=== PATIENT | male | born 1980 | race Hispanic/Latino ===

== ENCOUNTER 2018-05-28 08:29 | Emergency (ER) | payer SELFPAY ==
[2018-05-28 08:30] VITALS: BP 142/84; PULSE 73; RESP 23; TEMP 36.9; O2SAT 100; BMI 35.9
[2018-05-28 09:10] VITALS: BP 125/74; PULSE 69; RESP 23; O2SAT 96
--- NOTE | 2018-05-28 09:11 | DI.RAD.S_ITS ---
PROCEDURE: XR CHEST 1V INDICATIONS: chest pain TECHNIQUE: One view of the chest was acquired. COMPARISON: [facility], CR, XR CHEST 1V, 10/31/2017, 19:23. FINDINGS: Surgical changes and devices: None. Lungs and pleura: No pleural effusions or pneumothorax. Lungs are clear. Mediastinum: Mediastinal contours appear normal. Heart size is normal. Bones and chest wall: No suspicious bony lesions. Overlying soft tissues appear unremarkable. IMPRESSION: Mildly reduced inspiratory volume. No acute disease. Dictated by: Roque Sood M.D. on 05/28/2018 at 9:46 Approved by: Roque Sood M.D. on 05/28/2018 at 9:46
[2018-05-28 09:29] LABS: INR 1.1 (0.9-1.3); Prothrombin Time 11.3 SECONDS (10.1-12.7)
[2018-05-28 09:32] LABS: Add Manual Diff / Slide Review NO; Basophils Percent Auto 0.2 % (0-2); Eosinophils Percent Auto 1.9 % (2-4); Hematocrit 38.4 % (41-53); Hemoglobin 13.4 g/dL (13.5-17.5); Lymphocytes Percent Auto 23.6 % (25-40); Mean Corpuscular Hemoglobin 29.9 PG (26-34); Mean Corpuscular Volume 85.3 fL (80-100); Monocytes Percent Auto 7.8 % (3-14); Neutrophils Absolute Auto 5400 /uL (3000-5900); Neutrophils Percent Auto 66.5 % (50-75); PTT Partial Thromboplastin Tim 36 SECONDS (26.4-36.2); Platelet Count 252 X10^3/uL (150-400); Red Cell Distribution Width 13.2 % (11.6-14.8); White Blood Cell Count 8.2 X10^3/uL (4.5-11.0)
[2018-05-28 09:33] LABS: Alanine Aminotransferase 34 IU/L (21-72); Albumin Globulin Ratio 1.5 (1.0-2.8); Alkaline Phosphatase 110 U/L (38-126); Aspartate Aminotransferase 21 IU/L (17-59); BUN Creatinine Ratio 18.8 (6-22); Bilirubin Total 0.2 mg/dL (0.2-1.3); Blood Urea Nitrogen 15 mg/dL (9-20); Calcium 8.7 mg/dL (8.4-10.2); Carbon Dioxide 26 mmol/L (22-32); Chloride 103 mmol/L (98-107); Creatine Kinase 265 U/L (55-170); Estimated Glomerular Filt Rate > 60.0 mL/min (>60); Globulin 2.7 g/dL (1.7-4.1); Glucose 175 mg/dL (70-100); HEMOLYSIS < 15 (0-50); Lipase 135 U/L (23-300); Potassium 3.9 mmol/L (3.4-5.1); Sodium 142 mmol/L (137-145); Total Protein 6.7 g/dL (6.3-8.2)
[2018-05-28 09:46] LABS: Troponin I < 0.012 ng/mL (0.01-0.034)
[2018-05-28 09:48] LABS: CKMB % Relative Index 0.3 % (1.5-5.0); Creatine Kinase MB 0.86 ng/mL (<2.37)
--- NOTE | 2018-05-28 10:25 | ED.GENADULT ---
HPI - General Adult General Chief complaint: Chest Pain Stated complaint: facial pain Time Seen by Provider: 05/28/18 10:01 Source: patient Mode of arrival: ambulatory Limitations: no limitations History of Present Illness HPI narrative: This is a 37-year-old male comes to the emergency department with multiple complaints. His main complaint is pressure Um behind the nose and maxillary sinuses bilaterally. He states he does not had no fevers but he has had episodes where he is very warm and sometimes sweaty. Patient has not had a lot of nasal congestion or drainage but did have a cold a month ago. He has had symptoms for about 3 weeks. He states he does have some drainage down the back of his throat. He has had not had any cough cold or congestion recently. He states his vision sometimes feels a little blurry. He has not had any trauma or injury. He has not had similar symptoms in the past. He is also complaining of some chest pressure for the last month as well as abdominal pain for the last month sort of in the upper abdominal area. He also states his legs have been restless. He has not had any vomiting, he felt nauseous for about 2 hr a week ago, he denies any changes to bowel movements or urination. He also noticed some changes to his skin which are small red spots. IDDM, patient also takes some lisinopril, he has lost about 60 lb in last several months. He denies any prior surgeries, he chews tobacco but does not smoke. He occasionally drinks alcohol. He is seen at the [facility]. His dad heart attack around the age of 58 but he relates this probably to severe diabetes. Patient states his hemoglobin A1c has been 6.5 Related Data Home Medications Medication Instructions Recorded Confirmed insulin glargine [Lantus U-100 30 unit SQ HS #0 04/21/17 10/31/17 Insulin] insulin lispro [Humalog U-100 0 u SQ 4-6XD PRN #0 04/21/17 10/31/17 Insulin] lisinopril 10 mg PO QDAY #0 04/21/17 10/31/17 Previous Rx's Medication Instructions Recorded amoxicillin 500 mg PO TID #30 cap 05/28/18 fluticasone [Flonase Allergy 1 spray NASAL DAILY #9.9 gram 05/28/18 Relief] Allergies Allergy/AdvReac Type Severity Reaction Status Date / Time No Known Drug Allergies Allergy Verified 10/31/17 19:13 Review of Systems Review of Systems All systems reviewed & are unremarkable except as noted in HPI and below Constitutional Denies fever(s) (felt hot) and Denies headache(s) ENT Ears, Nose, Mouth, and Throat: Denies dizziness, Reports otalgia (left), Reports facial pain, Denies headache(s), Denies hoarseness, Denies epistaxis, Denies nasal congestion, Denies nasal discharge, Denies nasal obstruction, Denies nose pain, Reports sinus pain, Reports sinus pressure and Denies sore throat Cardiovascular Reports chest pain, Denies diaphoresis, Denies syncope and Denies dyspnea Respiratory Denies change in phlegm color, Denies chest congestion, Denies cough, Denies excessive phlegm production and Denies dyspnea Gastrointestinal Gastrointestinal: Denies abdominal pain, Denies change in bowel habits, Denies diarrhea, Reports nausea and Denies vomiting Genitourinary Denies difficulty urinating Integumentary/Breasts Reports new lesions (small red spots) Neurologic Denies dizziness, Denies syncope and Denies headache(s) [facility] Medical History Diabetes (Acute) GERD (gastroesophageal reflux disease) (Acute) High blood pressure (Acute) No significant past surgical history (Acute) Social History Smoking Status: Former smoker alcohol intake: never substance use type: does not use Exam Narrative Exam Narrative: GEN: well nourished, obese, well-appearing male, alert and oriented x 3, patient appears to be in no acute distress. HEENT: Atraumatic, pupils are equal round reactive to light, extraocular movements are intact, nares are clear, TMs are clear with no fluid, there is no conjunctival pallor. Throat is clear without any exudates, erythema, tonsillar enlargement or uvular deviation, mild sinus tenderness with palpation. No erythema, facial swelling. HEART: Regular rate and rhythm without murmur, clicks, rubs. No carotid bruits, pulses are equal in upper and lower extremities LUNGS:Lungs clear to auscultation, no wheezes, rales, crackles, chest moves symmetrically ABD:bowel sounds normal, soft, non-tender, no guarding, rebound, rigidity, no masses noted, no hepatosplenomegaly :No CVA tenderness, [male/female exam] MSCL: Non-tender, no muscle atrophy, muscles strength 5/5 upper and lower extremities, full range of motion, normal gait NEURO:CN 2-12 intact, sensation normal, reflexes 2/4 upper and lower extremities. finger nose finger test normal, heel borrego test normal, romberg normal Initial Vital Signs Initial Vital Signs: Vital Signs Temperature 98.5 F 05/28/18 08:30 Pulse Rate 73 05/28/18 08:30 Respiratory Rate 23 05/28/18 08:30 Blood Pressure 142/84 H 05/28/18 08:30 Pulse Oximetry 100 05/28/18 08:30 Course Orders Ordered: ED Orders 05/28/18 08:06 Complete Blood Count AUTO DIFF Stat Comprehensive Metabolic Panel Stat Lipase Stat Partial Thromboplastin Time Stat Prothrombin Time INR Stat Troponin & CK Cardiac Panel Stat 05/28/18 09:11 XR chest 1V Stat EKG-12 Lead Stat Vital Signs - 8 hr 05/28/18 10:45 Pulse Rate 68 Respiratory Rate 19 Blood Pressure 117/70 Pulse Oximetry 100 Medical Decision Making Lab Data Lab results reviewed: Yes I reviewed the patient's lab results. Result diagrams: 05/28/18 08:06 05/28/18 08:06 Lab Results 05/28/18 05/28/18 05/28/18 Range/Units 08:06 08:06 08:06 WBC 8.2 (4.5-11.0) X10^3/uL RBC 4.50 (4.5-5.9) X10^6/uL Hgb 13.4 L (13.5-17.5) g/dL Hct 38.4 L (41-53) % MCV 85.3 (80-100) fL MCH 29.9 (26-34) PG MCHC 35.0 (30-36) % RDW 13.2 (11.6-14.8) % Plt Count 252 (150-400) X10^3/uL Neut % (Auto) 66.5 (50-75) % Lymph % (Auto) 23.6 L (25-40) % [place] % (Auto) 7.8 (3-14) % Eos % (Auto) 1.9 L (2-4) % Baso % (Auto) 0.2 (0-2) % Neut # (Auto) 5400 (6774-7105) /uL PT 11.3 (10.1-12.7) SECONDS INR 1.1 (0.9-1.3) APTT 36 D (26.4-36.2) SECONDS Sodium 142 (137-145) mmol/L Potassium 3.9 (3.4-5.1) mmol/L Chloride 103 (98-107) mmol/L Carbon Dioxide 26 (22-32) mmol/L BUN 15 (9-20) mg/dL Creatinine 0.80 (0.66-1.25) mg/dL Estimated GFR > 60.0 (>60) mL/min BUN/Creatinine Ratio 18.8 (6-22) Glucose 175 H (70-100) mg/dL Calcium 8.7 (8.4-10.2) mg/dL Total Bilirubin 0.2 (0.2-1.3) mg/dL AST 21 (17-59) IU/L ALT 34 (21-72) IU/L Alkaline Phosphatase 110 (38-126) U/L Total Creatine Kinase 265 H (55-170) U/L CK-MB (CK-2) 0.86 (<2.37) ng/mL CK-MB (CK-2) Rel Index 0.3 L (1.5-5.0) % Troponin I < 0.012 (0.01-0.034) ng/mL Total Protein 6.7 (6.3-8.2) g/dL Albumin 4.0 (3.5-5.0) g/dL Globulin 2.7 (1.7-4.1) g/dL Albumin/Globulin Ratio 1.5 (1.0-2.8) Lipase 135 (23-300) U/L Imaging Data Chest x-ray: Radiologist's impression: [address] [address] XRay Report Signed Patient: Nico Ovalle EMR#: [id number] : 1980Acct:[id number] Age/Sex: 37 / MDate of Service: 05/28/18 Loc: ED Accession Number: [id number] Procedure: XR chest 1V Ordering Provider: Ladonna Chau D.O. PROCEDURE: XR CHEST 1V INDICATIONS: chest pain TECHNIQUE: One view of the chest was acquired. COMPARISON: [facility], CR, XR CHEST 1V, 10/31/2017, 19:23. FINDINGS: Surgical changes and devices: None. Lungs and pleura: No pleural effusions or pneumothorax. Lungs are clear. Mediastinum: Mediastinal contours appear normal. Heart size is normal. Bones and chest wall: No suspicious bony lesions. Overlying soft tissues appear unremarkable. IMPRESSION: Mildly reduced inspiratory volume. No acute disease. Dictated by: Roque Sood M.D. on 05/28/2018 at 9:46 Approved by: Roque Sood M.D. on 05/28/2018 at 9:46 ECG Data Attestation: I personally reviewed and interpreted this ECG as follows: Interpretation: Sinus rhythm rate of 71 P are 184 QRS of 122 and QTC of 406. Discharge Plan Departure Patient Disposition: Home Clinical Impression: Sinusitis Discharge Date/Time: 05/28/18 10:45 Interventions: ED Discharge Assessment Last Done: 05/28/18 10:45 Instructions: DI for Sinusitis Activity Restrictions/Additional Instructions: Follow-up with her primary care physician in the next week, call for an appointment. Use Flonase 1-2 sprays in both nostrils once daily. You can also do a Neti pot or nasal rinses once daily. You may take a Claritin [id number] for nasal congestion. If these are not helpful after several days you may start antibiotics, take these until they are gone. Return to the emergency department for fevers greater than 100.4, rapidly worsening pain, new vision changes, difficulty with speech, facial droop, swelling or redness of the face, or other new or concerning symptoms. Prescriptions: New amoxicillin 500 mg capsule 500 mg PO TID Qty: 30 RF: 0 fluticasone [Flonase Allergy Relief] 50 mcg/actuation spray,suspension 1 spray NASAL DAILY Qty: 9.9 RF: 0 No Action insulin glargine [Lantus U-100 Insulin] 100 UNIT/1 ML solution 30 unit SQ HS Qty: 0 RF: 0 insulin lispro [Humalog U-100 Insulin] 100 UNIT/1 ML solution SQ 4-6XD PRN (Reason: sliding scale) Qty: 0 RF: 0 lisinopril 10 MG tablet 10 mg PO QDAY Qty: 0 RF: 0
--- NOTE | 2018-05-28 10:31 | ED_ITS ---
HPI - General Adult General Chief complaint: Chest Pain Stated complaint: facial pain Time Seen by Provider: 05/28/18 10:01 Source: patient Mode of arrival: ambulatory Limitations: no limitations History of Present Illness HPI narrative: This is a 37-year-old male comes to the emergency department with multiple complaints. His main complaint is pressure Um behind the nose and maxillary sinuses bilaterally. He states he does not had no fevers but he has had episodes where he is very warm and sometimes sweaty. Patient has not had a lot of nasal congestion or drainage but did have a cold a month ago. He has had symptoms for about 3 weeks. He states he does have some drainage down the back of his throat. He has had not had any cough cold or congestion recently. He states his vision sometimes feels a little blurry. He has not had any trauma or injury. He has not had similar symptoms in the past. He is also complaining of some chest pressure for the last month as well as abdominal pain for the last month sort of in the upper abdominal area. He also states his legs have been restless. He has not had any vomiting, he felt nauseous for about 2 hr a week ago, he denies any changes to bowel movements or urination. He also noticed some changes to his skin which are small red spots. IDDM, patient also takes some lisinopril, he has lost about 60 lb in last several months. He denies any prior surgeries, he chews tobacco but does not smoke. He occasionally drinks alcohol. He is seen at the [facility]. His dad heart attack around the age of 56 but he relates this probably to severe diabetes. Patient states his hemoglobin A1c has been 6.5 Related Data Home Medications Medication Instructions Recorded Confirmed insulin glargine [Lantus U-100 30 unit SQ HS #0 04/21/17 10/31/17 Insulin] insulin lispro [Humalog U-100 0 u SQ 4-6XD PRN #0 04/21/17 10/31/17 Insulin] lisinopril 10 mg PO QDAY #0 04/21/17 10/31/17 Previous Rx's Medication Instructions Recorded amoxicillin 500 mg PO TID #30 cap 05/28/18 fluticasone [Flonase Allergy 1 spray NASAL DAILY #9.9 gram 05/28/18 Relief] Allergies Allergy/AdvReac Type Severity Reaction Status Date / Time No Known Drug Allergies Allergy Verified 10/31/17 19:13 Review of Systems Review of Systems All systems reviewed & are unremarkable except as noted in HPI and below Constitutional Denies fever(s) (felt hot) and Denies headache(s) ENT Ears, Nose, Mouth, and Throat: Denies dizziness, Reports otalgia (left), Reports facial pain, Denies headache(s), Denies hoarseness, Denies epistaxis, Denies nasal congestion, Denies nasal discharge, Denies nasal obstruction, Denies nose pain, Reports sinus pain, Reports sinus pressure and Denies sore throat Cardiovascular Reports chest pain, Denies diaphoresis, Denies syncope and Denies dyspnea Respiratory Denies change in phlegm color, Denies chest congestion, Denies cough, Denies excessive phlegm production and Denies dyspnea Gastrointestinal Gastrointestinal: Denies abdominal pain, Denies change in bowel habits, Denies diarrhea, Reports nausea and Denies vomiting Genitourinary Denies difficulty urinating Integumentary/Breasts Reports new lesions (small red spots) Neurologic Denies dizziness, Denies syncope and Denies headache(s) [facility] Medical History Diabetes (Acute) GERD (gastroesophageal reflux disease) (Acute) High blood pressure (Acute) No significant past surgical history (Acute) Social History Smoking Status: Former smoker alcohol intake: never substance use type: does not use Exam Narrative Exam Narrative: GEN: well nourished, obese, well-appearing male, alert and oriented x 3, patient appears to be in no acute distress. HEENT: Atraumatic, pupils are equal round reactive to light, extraocular movements are intact, nares are clear, TMs are clear with no fluid, there is no conjunctival pallor. Throat is clear without any exudates, erythema, tonsillar enlargement or uvular deviation, mild sinus tenderness with palpation. No erythema, facial swelling. HEART: Regular rate and rhythm without murmur, clicks, rubs. No carotid bruits , pulses are equal in upper and lower extremities LUNGS:Lungs clear to auscultation, no wheezes, rales, crackles, chest moves symmetrically ABD:bowel sounds normal, soft, non-tender, no guarding, rebound, rigidity, no masses noted, no hepatosplenomegaly :No CVA tenderness, [male/female exam] MSCL: Non-tender, no muscle atrophy, muscles strength 5/5 upper and lower extremities, full range of motion, normal gait NEURO:CN 2-12 intact, sensation normal, reflexes 2/4 upper and lower extremities. finger nose finger test normal, heel borrego test normal, romberg normal Initial Vital Signs Initial Vital Signs: Vital Signs Temperature 98.5 F 05/28/18 08:30 Pulse Rate 73 05/28/18 08:30 Respiratory Rate 23 05/28/18 08:30 Blood Pressure 142/84 H 05/28/18 08:30 Pulse Oximetry 100 05/28/18 08:30 Course Orders Ordered: ED Orders 05/28/18 08:06 Complete Blood Count AUTO DIFF Stat Comprehensive Metabolic Panel Stat Lipase Stat Partial Thromboplastin Time Stat Prothrombin Time INR Stat Troponin & CK Cardiac Panel Stat 05/28/18 09:11 XR chest 1V Stat EKG-12 Lead Stat Vital Signs - 8 hr 05/28/18 10:45 Pulse Rate 68 Respiratory Rate 19 Blood Pressure 117/70 Pulse Oximetry 100 Medical Decision Making Lab Data Lab results reviewed: Yes I reviewed the patient's lab results. Result diagrams: 05/28/18 08:06 05/28/18 08:06 Lab Results 05/28/18 05/28/18 05/28/18 Range/Units 08:06 08:06 08:06 WBC 8.2 (4.5-11.0) X10^3/uL RBC 4.50 (4.5-5.9) X10^6/uL Hgb 13.4 L (13.5-17.5) g/dL Hct 38.4 L (41-53) % MCV 85.3 (80-100) fL MCH 29.9 (26-34) PG MCHC 35.0 (30-36) % RDW 13.2 (11.6-14.8) % Plt Count 252 (150-400) X10^3/uL Neut % (Auto) 66.5 (50-75) % Lymph % (Auto) 23.6 L (25-40) % [place] % (Auto) 7.8 (3-14) % Eos % (Auto) 1.9 L (2-4) % Baso % (Auto) 0.2 (0-2) % Neut # (Auto) 5400 (5733-1201) /uL PT 11.3 (10.1-12.7) SECONDS INR 1.1 (0.9-1.3) APTT 36 D (26.4-36.2) SECONDS Sodium 142 (137-145) mmol/L Potassium 3.9 (3.4-5.1) mmol/L Chloride 103 (98-107) mmol/L Carbon Dioxide 26 (22-32) mmol/L BUN 15 (9-20) mg/dL Creatinine 0.80 (0.66-1.25) mg/dL Estimated GFR > 60.0 (>60) mL/min BUN/Creatinine Ratio 18.8 (6-22) Glucose 175 H (70-100) mg/dL Calcium 8.7 (8.4-10.2) mg/dL Total Bilirubin 0.2 (0.2-1.3) mg/dL AST 21 (17-59) IU/L ALT 34 (21-72) IU/L Alkaline Phosphatase 110 (38-126) U/L Total Creatine Kinase 265 H (55-170) U/L CK-MB (CK-2) 0.86 (<2.37) ng/mL CK-MB (CK-2) Rel Index 0.3 L (1.5-5.0) % Troponin I < 0.012 (0.01-0.034) ng/mL Total Protein 6.7 (6.3-8.2) g/dL Albumin 4.0 (3.5-5.0) g/dL Globulin 2.7 (1.7-4.1) g/dL Albumin/Globulin Ratio 1.5 (1.0-2.8) Lipase 135 (23-300) U/L Imaging Data Chest x-ray: Radiologist's impression: [address] [address] XRay Report Signed Patient: Nico Ovalle EMR#: [id number] : 1980Acct:[id number] Age/Sex: 37 / MDate of Service: 05/28/18 Loc: ED Accession Number: [id number] Procedure: XR chest 1V Ordering Provider: Ladonna Chau D.O. PROCEDURE: XR CHEST 1V INDICATIONS: chest pain TECHNIQUE: One view of the chest was acquired. COMPARISON: [facility], CR, XR CHEST 1V, 10/31/2017, 19:23. FINDINGS: Surgical changes and devices: None. Lungs and pleura: No pleural effusions or pneumothorax. Lungs are clear. Mediastinum: Mediastinal contours appear normal. Heart size is normal. Bones and chest wall: No suspicious bony lesions. Overlying soft tissues appear unremarkable. IMPRESSION: Mildly reduced inspiratory volume. No acute disease. Dictated by: Roque Sood M.D. on 05/28/2018 at 9:46 Approved by: Roque Sood M.D. on 05/28/2018 at 9:46 ECG Data Attestation: I personally reviewed and interpreted this ECG as follows: Interpretation: Sinus rhythm rate of 71 P are 184 QRS of 122 and QTC of 406. Discharge Plan Departure Patient Disposition: Home Clinical Impression: Sinusitis Discharge Date/Time: 05/28/18 10:45 Interventions: ED Discharge Assessment Last Done: 05/28/18 10:45 Instructions: DI for Sinusitis Activity Restrictions/Additional Instructions: Follow-up with her primary care physician in the next week, call for an appointment. Use Flonase 1-2 sprays in both nostrils once daily. You can also do a Neti pot or nasal rinses once daily. You may take a Claritin [id number] for nasal congestion. If these are not helpful after several days you may start antibiotics, take these until they are gone. Return to the emergency department for fevers greater than 100.4, rapidly worsening pain, new vision changes, difficulty with speech, facial droop, swelling or redness of the face, or other new or concerning symptoms. Prescriptions: New amoxicillin 500 mg capsule 500 mg PO TID Qty: 30 RF: 0 fluticasone [Flonase Allergy Relief] 50 mcg/actuation spray,suspension 1 spray NASAL DAILY Qty: 9.9 RF: 0 No Action insulin glargine [Lantus U-100 Insulin] 100 UNIT/1 ML solution 30 unit SQ HS Qty: 0 RF: 0 insulin lispro [Humalog U-100 Insulin] 100 UNIT/1 ML solution SQ 4-6XD PRN (Reason: sliding scale) Qty: 0 RF: 0 lisinopril 10 MG tablet 10 mg PO QDAY Qty: 0 RF: 0
[2018-05-28 10:45] VITALS: BP 117/70; PULSE 68; RESP 19; O2SAT 100
== END 2018-05-28 10:45 | disposition home or self-care (01) ==
PROVIDERS: Emergency Provider Emergency Medicine
DX: J32.9 Chronic sinusitis, unspecified (principal); R07.89 Other chest pain
CPT/HCPCS: 36591; 71045; 80053; 82550; 82553; 83690; 84484; 85025; 85610; 85730; 93005; 99282; 99285